=== PATIENT | female | born 1975 | race Caucasian/White ===

== ENCOUNTER 2017-07-17 04:58 | Emergency (ER) | payer OTHER ==
[~2017-07-17] VITALS: Ht 172.7 cm; Wt 130.0 kg
[2017-07-17 05:00] VITALS: BP 147/99
[2017-07-17] MEDS ORDERED: NAPROXEN 500 MG TABLET PO ONE (06:00)
== END 2017-07-17 06:34 | disposition home or self-care (01) ==
LOC: ED 05:47
DX: S69.92XA Unspecified injury of left wrist, hand and finger(s), initial encounter (principal); I10 Essential (primary) hypertension; X58.XXXA Exposure to other specified factors, initial encounter; Y93.89 Activity, other specified; Y92.89 Other specified places as the place of occurrence of the external cause; Y99.8 Other external cause status
CPT/HCPCS: 99284